=== PATIENT | male | born 1950 ===

== ENCOUNTER 2022-10-04 08:34 | Emergency (ER) | payer OTHER ==
[2022-10-04] MEDS ORDERED: Iopamidol 370 76% 100 ML VIAL ONE (09:00)
[2022-10-04] MEDS ORDERED: Ketorolac Tromethamine 30 MG/ML VIAL ONE (09:20)
[2022-10-04 09:36] LABS: #Basophils 0.1 thou/uL (0.0-0.2); #Eosinphils 0.3 thou/uL (0.0-0.7); #Lymphocytes 0.9 thou/uL (1.20-3.40); #Monocytes 0.7 thou/uL (0.11-0.59); #Neutrophils 8.8 thou/uL (1.40-6.50); %Basophils 0.5 % (0.0-1.0); %Eosinophils 2.8 % (0.0-10.0); %Lymphocytes 8.7 % (21.0-51.0); %Monocytes 6.9 % (0.0-10.0); %Neutrophils 81.1 % (42.0-75.0); Hematocrit 41.2 % (42.0-52.0); Hemoglobin 13.4 g/dL (14.0-18.0); Mean Corpuscular HGB CONC 32.6 g/dL (32.0-36.0); Mean Corpuscular Hemoglobin 28.2 pg (27.0-31.0); Mean Corpuscular Volume 86.4 fl (78.0-98.0); Mean Platelet Volume 7.5 fL (7.4-10.4); Platelet Count 186 10x3/uL (130-400); RBC Distribution Width 13.1 % (11.5-14.5); Red Blood Cell (RBC) Count 4.77 mill/uL (4.70-6.10); White Blood Cell (WBC) Count 10.8 10x3/uL (4.8-10.8)
[2022-10-04 09:45] LABS: INR-International Normal Ratio 0.9
[2022-10-04 09:51] LABS: Anion Gap 14 mmol/L (10-20); BUN (Urea Nitrogen) 15 mg/dL (8.4-25.7); Calc. Creatinine Clearance 0 mL/min (70-130); Calcium 9.2 mg/dL (7.8-10.44); Carbon Dioxide 26 mmol/L (23-31); Chloride 100 mmol/L (98-107); Estimated GFR 81; Glucose 115 mg/dL (80-115); Potassium 5.2 mmol/L (3.5-5.1); Sodium 135 mmol/L (136-145)
[2022-10-04 09:54] LABS: PTT 24.3 sec (22.9-36.1)
[2022-10-04] MEDS ORDERED: Ondansetron PF 4 MG/2 ML Vial ONE (13:09)
[2022-10-04] MEDS ORDERED: Morphine 4 MG/ML VIAL ONE (13:09)
[2022-10-04] MEDS ORDERED: Heparin 25,000 units/D5W 500 ML ONE (13:55)
[2022-10-04] MEDS ORDERED: Heparin 10,000 UNITS/ 10 ML VIAL ONE (13:55)
[2022-10-04 14:58] LABS: Potassium 4.7 mmol/L (3.5-5.1)
== END 2022-10-04 17:12 | disposition home or self-care (01) ==
LOC: EEVIPCON 08:34 → NAV ERS 08:34
DX: I70.201 Unspecified atherosclerosis of native arteries of extremities, right leg (principal); E11.51 Type 2 diabetes mellitus with diabetic peripheral angiopathy without gangrene; K21.9 Gastro-esophageal reflux disease without esophagitis; E78.00 Pure hypercholesterolemia, unspecified; I10 Essential (primary) hypertension; E66.9 Obesity, unspecified; J45.909 Unspecified asthma, uncomplicated
CPT/HCPCS: 75635; 80048; 83880; 85025; 85379; 85610; 85730; 96365; 96375; 96376; J1644; J1885; J2270; J2405; Q9967